=== PATIENT | female | born 1990 | race American Indian/Alaskan Native ===

== ENCOUNTER 2021-03-14 11:47 | Observation (INO) | payer OTHER ==
[2021-03-14] MEDS ORDERED: FAMOTIDINE 20 MG/2 ML INJ IV ONE (12:07)
[2021-03-14] MEDS ORDERED: MORPHINE 4 MG/1 ML INJ IV ONE (12:07)
[2021-03-14] MEDS ORDERED: ONDANSETRON 4 MG/2 ML INJ IV ONE ×2 (12:07→15:11)
[2021-03-14] MEDS ORDERED: ACETAMINOPHEN 500 MG TAB PO ONE (12:14)
--- NOTE | 2021-03-14 12:15 | Event Note ---
ED Screening Note Date of service: 03/14/21 Time: 12:12 ED Screening Note: Patient is a 30-year-old -German female with no past medical history presents to the ED with complaint of acute onset persistent right lower quadrant abdominal pain that radiates to the periumbilical area with intractable nausea and vomiting and diarrhea for the last 3 days, worse in the last 24 hours. Patient states that she has not been able to keep anything down including fluids and that diarrhea and vomiting have been persistent and constant. Patient states that no one else at home has had similar symptoms. Patient denies dizziness, syncope, chest pain, cough, sore throat, dysuria, urinary frequency and urgency, vaginal bleeding or vaginal discharge, hematuria, hematemesis or hematochezia. This initial assessment/diagnostic orders/clinical plan/treatment(s) is/are subject to change based on patients health status, clinical progression and re- assessment by fellow clinical providers in the ED. Further treatment and workup at subsequent clinical providers discretion. Patient/guardian urged not to elope from the ED as their condition may be serious if not clinically assessed and managed. Initial orders include: CBC, CMP, lipase, UA, hCG urine, CT abdomen pelvis with contrast, blood culture, lactic acid
[2021-03-14 12:39] LABS: Bacteria,Urine 4+ /HPF (Negative); Bilirubin,Urine NEG (Negative); Blood,Urine NEG (Negative); Color,Urine Yellow (Yellow); Mucus,Urine FEW /HPF; Protein,Urine <15 mg/dL mg/dL (Negative)
[2021-03-14 13:53] LABS: Mean Corpuscular HGB Conc 25 % (30-34); Red Blood Count 3.47 M/mm3 (3.65-5.03)
[2021-03-14 13:55] LABS: Hematocrit 17.6 % (30.3-42.9); Hemoglobin 4.5 gm/dl (10.1-14.3); Mean Corpuscular Volume 51 fl (79-97); Platelet Count 174 K/mm3 (140-440); Red Cell Distribution Width 24.6 % (13.2-15.2)
[2021-03-14 14:15] LABS: Albumin 3.8 g/dL (3.9-5); BUN/Creatinine Ratio 7; Blood Urea Nitrogen 6 mg/dL (7-17); Calcium 8.9 mg/dL (8.4-10.2); Hemolysis Index 0
[2021-03-14 14:19] LABS: Alanine Aminotransferase < 5 units/L (7-56)
[2021-03-14 14:27] LABS: Anisocytosis 2+; Total Cells Counted 100
[2021-03-14 14:28] LABS: Hypochromasia 3+; Platelet Estimate Consistent w Auto
[2021-03-14] MEDS ORDERED: SODIUM CHLORIDE 0.9% 500 ML 500 ML IV ONE ×3 (14:49→21:23)
[2021-03-14] MEDS ORDERED: SODIUM CHLORIDE 0.9% 1000 ML 1,000 ML IV ONE ×2 (14:49→17:01)
--- NOTE | 2021-03-14 14:49 | Emergency Department Report ---
ED Abdominal Pain HPI - General Chief Complaint: Abdominal Pain Stated Complaint: STOMACH PAIN Time Seen by Provider: 03/14/21 14:37 Source: patient Mode of arrival: Ambulatory Limitations: No Limitations - History of Present Illness Initial Comments: 30-year-old female, history of fibroids, anemia, presents to ED with complaint of abdominal pain x3 days. Patient states pain is located in the periumbilical and right lower quadrant area. She reports associated nausea, vomiting, diarrhea. She reports decreased appetite. She denies fever. She denies any hematuria, dysuria, urinary frequency, vaginal discharge. Patient states she is not currently on her menstrual period. Patient has a history of anemia due to heavy bleeding, states that she has had blood transfusions in the past. MD Complaint: abdominal pain -: days(s) (3) Location: periumbilical, RLQ Radiation: none Migration to: no migration Severity: moderate Quality: sharp Consistency: constant Improves With: eating Worsens With: nothing Associated Symptoms: nausea, vomiting, diarrhea. denies: fever, dysuria, hematuria - Related Data Home Medications Medication Instructions Recorded Confirmed Last Taken No Known Home Medications [No 03/14/21 03/14/21 Unknown Reported Home Medications] Allergies Allergy/AdvReac Type Severity Reaction Status Date / Time No Known Allergies Allergy Unverified 03/14/21 12:00 ED Review of Systems ROS: Stated complaint: STOMACH PAIN Other details as noted in HPI Comment: All other systems reviewed and negative Constitutional: other (Reports decreased appetite). denies: fever Gastrointestinal: abdominal pain, nausea, vomiting, diarrhea Genitourinary: denies: dysuria, frequency, hematuria, discharge Musculoskeletal: denies: back pain ED Past Medical Hx - Past Medical History Additional medical history: Anemia - Surgical History Additional Surgical History: C sect x1 - Social History Smoking Status: Current Every Day Smoker Substance Use Type: Alcohol - Medications Home Medications: Home Medications Medication Instructions Recorded Confirmed Last Taken Type No Known Home Medications [No 03/14/21 03/14/21 Unknown History Reported Home Medications] ED Physical Exam - General Limitations: No Limitations General appearance: alert, in no apparent distress - Head Head exam: Present: atraumatic, normocephalic - Eye Eye exam: Present: normal appearance, EOMI - ENT ENT exam: Present: mucous membranes moist - Neck Neck exam: Present: normal inspection - Respiratory Respiratory exam: Present: normal lung sounds bilaterally. Absent: respiratory distress - Cardiovascular Cardiovascular Exam: Present: normal rhythm, tachycardia - GI/Abdominal GI/Abdominal exam: Present: soft, tenderness (Right lower quadrant). Absent: distended - External exam: Present: normal external exam Speculum exam: Present: vaginal discharge. Absent: vaginal bleeding Bi-manual exam: Present: cervical motion tendernes, adnexal tenderness - Extremities Exam Extremities exam: Present: normal inspection - Neurological Exam Neurological exam: Present: alert, oriented X3 - Psychiatric Psychiatric exam: Present: normal affect, normal mood - Skin Skin exam: Present: warm, dry, intact, normal color ED Course Vital Signs 03/14/21 03/14/21 03/14/21 12:00 14:07 15:10 Temperature 100.2 F H Pulse Rate 108 H 94 H 92 H Respiratory 20 18 22 Rate Blood Pressure 119/57 Blood Pressure 90/54 106/62 [L] O2 Sat by Pulse 100 98 100 Oximetry 03/14/21 03/14/21 03/14/21 15:21 15:22 16:25 Temperature 101.0 F H Pulse Rate 96 H 95 H Respiratory 18 12 Rate Blood Pressure 91/64 Blood Pressure 92/60 [L] O2 Sat by Pulse 100 100 100 Oximetry 03/14/21 03/14/21 03/14/21 16:39 16:40 17:10 Temperature 99.7 F H 99.0 F Pulse Rate 68 98 H 98 H Respiratory 18 18 20 Rate Blood Pressure 97/70 94/70 Blood Pressure 112/59 [L] O2 Sat by Pulse 100 100 100 Oximetry 03/14/21 17:35 Temperature 99.2 F Pulse Rate 89 Respiratory 20 Rate Blood Pressure 124/60 Blood Pressure [L] O2 Sat by Pulse Oximetry - Reevaluation(s) Reevaluation #1: 03/14/21 16:39 Received call from radiologist stating patient appears to have a tubo-ovarian abscess. Will order ultrasound. - Consultations Consultation #1: 03/14/21 18:[address] Mauro, since ultrasound is taking a while to get patient's study done. He is aware of patient. Will await ultrasound results. Patient may possibly simply need cefoxitin, doxycycline, Flagyl if ultrasound truly shows TOA. 03/14/21 19:[address] Mauro again. Ultrasound confirms TOA. Would like to keep Flagyl, but instead of doxycycline and cefoxitin (which we do not carry), patient will get clindamycin and gentamicin. She will be admitted to Dr. Mauro. ED Medical Decision Making - Lab Data Result diagrams: 03/14/21 19:12 03/14/21 12:57 - Radiology Data Radiology results: report reviewed, image reviewed - Medical Decision Making 30-year-old female, history of anemia secondary to fibroids, presents to ED with 3-day history of right lower quadrant pain, fever, nausea and vomiting. Patient with fever over 101 and WBCs of 19. Lactic acid is normal. Hemoglobin resulted at 4.5. In the ED patient was given IV fluid bolus, pain medication, and transfused 1 unit of PRBCs. Ultrasound confirms a right-sided tubo-ovarian abscess. 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 Patient has already received Zosyn. She will in addition get Flagyl, clindamycin, and gentamicin. Repeat in one, resulted at 4.3 following 1 unit transfusion, so another unit has been ordered by me. Patient will be admitted to the mother-baby by Dr. Mauro. - Differential Diagnosis Appendicitis, TOA, kidney stone Critical Care Time: Yes Critical care time in (mins) excluding proc time.: 35 Critical care attestation.: If time is entered above; I have spent that time in minutes in the direct care of this critically ill patient, excluding procedure time. Critical Care Time: 35 min ED Disposition Clinical Impression: Right tubo-ovarian abscess, Anemia, Hypokalemia Disposition: -09 OP ADMIT IP TO THIS HOSP Is pt being admited?: Yes Condition: Stable Instructions: Abdominal Pain (ED) Referrals: PRIMARY CARE, [Primary Care Provider] - 3-5 Days Time of Disposition: 19:58
[2021-03-14] MEDS ORDERED: MORPHINE 2 MG/1 ML INJ IV ONE (15:11)
[2021-03-14] MEDS ORDERED: HYDROmorphone 1 MG/1 ML INJ IV ONE ×2 (15:48→20:50)
[2021-03-14] MEDS ORDERED: PIPERACIL/TAZOBACTA 4.5/NS 100 4.5 GM/100 ML VIAL IV ONE (16:41)
--- NOTE | 2021-03-14 16:48 | Cat Scan Report ---
CT ABDOMEN AND PELVIS WITH CONTRAST INDICATION / CLINICAL INFORMATION: RLQ abdominal pain. TECHNIQUE: Axial CT images were obtained through the abdomen and pelvis after IV contrast. All CT sc ans at this location are performed using CT dose reduction for ALARA by means of automated exposure c ontrol. COMPARISON: None available. FINDINGS: LOWER CHEST: No significant abnormality LIVER: Hepatomegaly, measuring 20.5 cm. No focal lesion. GALLBLADDER/BILIARY TREE: No significant abnormality PANCREAS: No significant abnormality SPLEEN: Splenomegaly, measuring 15.9 cm. No focal lesion. ADRENALS: No significant abnormality KIDNEYS / URETER: Ptotic appearing left kidney with nonobstructive left renal calculus. The kidneys e nhance symmetrically. Mild asymmetric prominence of the right ureter without abran hydronephrosis. No ureteral calculus. URINARY BLADDER: Bladder is partially decompressed, though grossly unremarkable. REPRODUCTIVE ORGANS: There is inflammation centered in the right adnexa with tubular fluid density st ructures, which may reflect hydrosalpinx. Multiloculated peripherally enhancing collection in the pel vis measures up to 10.6 x 9.7 cm transaxially (series 2 image 145). STOMACH / SMALL BOWEL: Nondilated fluid-filled small bowel, likely reactive. No evidence of obstructi on. COLON: Reactive thickening of the sigmoid colon adjacent to the above-described collection. Colon is otherwise unremarkable. Normal appendix is seen. LYMPH NODES: No significant adenopathy. VASCULATURE: No significant abnormality. OTHER: No free air, free fluid, or focal fluid collection is identified. SKELETAL SYSTEM: No acute osseous findings. IMPRESSION: 1. Inflammatory changes centered in the pelvis/right adnexa with 10 cm multiloculated rim-enhancing collection, suspicious for abscess, and right hydrosalpinx. 2. Reactive enterocolitis of the sigmoid and distal small bowel. 3. Other chronic and incidental findings as above. Findings were discussed with Dr. Judd by phone on 03/14/2021 at 3:43 PM. Signer Name: Espinoza Wheatley MD Signed: 03/14/2021 4:44 PM Workstation Name: [id number]
[2021-03-14] MEDS ORDERED: fentaNYL 100 MCG/2 ML INJ IV ONE (17:00)
[2021-03-14] MEDS ORDERED: metroNIDAZOLE 500 MG TAB PO ONE (19:41)
[2021-03-14] MEDS ORDERED: DOXYCYCLINE 100 MG CAP PO ONE (19:41)
[2021-03-14 19:46] LABS: Hematocrit 16.3 % (30.3-42.9); Hemoglobin 4.3 gm/dl (10.1-14.3)
--- NOTE | 2021-03-14 19:49 | Ultrasound Report ---
ULTRASOUND PELVIS INDICATION / CLINICAL INFORMATION: RLQ pain. TECHNIQUE: Transabdominal and Transvaginal. Duplex Color Doppler used: Yes. COMPARISON: CT abdomen pelvis 03/14/2021 FINDINGS: UTERUS: Moderately enlarged uterus measuring 13.4 x 5.0 x 7.8 cm. 4.6 cm heterogeneous focus at the l ateral aspect of the uterus likely represents a fibroid. Endometrial thickness is 11 mm in this preme nopausal patient. RIGHT ADNEXA: Complex right adnexal focus with cystic and reticular low level echogenicity. This uziel ures 13.3 x 6.8 x 7.8 cm altogether. When compared to the recent CT examination there is considerable dilatation of the fallopian tube which is difficult to fully quantify on this examination. Mildly in creased vascularity in this region. The right ovary itself is not well delineated. LEFT ADNEXA: No significant ovarian cyst or mass. Normal color Doppler blood flow. URINARY BLADDER: Scant internal debris in the bladder. FREE FLUID: Small amount. ADDITIONAL FINDINGS: None. IMPRESSION: 1. Complex fluid collection in the right adnexa measuring up to 13.3 cm with considerable dilatation of the right fallopian tube. Findings are concerning for tubo-ovarian abscess with possible pyosalpin x. 2. 4.6 cm heterogeneous uterine focus likely representing a fibroid. 3. Small amount of pelvic free fluid. 4. Scant internal debris in the bladder which can be seen in setting of cystitis. Signer Name: Tejinder Ames MD Signed: 03/14/2021 7:45 PM Workstation Name: [id number]
[2021-03-14] MEDS ORDERED: GENTAMICIN 120 MG in SODIUM CHLORIDE 0.9% 100 ML IV ONE (19:54)
[2021-03-14] MEDS ORDERED: POTASSIUM CHLORIDE ER 20 MEQ TAB PO ONE (19:58)
[2021-03-14] MEDS ORDERED: GENTAMICIN/NS 120MG/100ML 120 MG/100 ML BAG IV ONE (20:00)
[2021-03-14] MEDS ORDERED: LACTATED RINGERS 1,000 ML IV SCH ×2 (21:45→22:00)
[2021-03-14] MEDS: oxyCODONE /ACETAMINOPHEN 5-325MG TAB PO PRN (22:02)
--- NOTE | 2021-03-14 22:02 | History and Physical Report ---
History of Present Illness Date of examination: 03/14/21 Date of admission: 03/14/21 19:57 Chief complaint: RLQ pain History of present illness: 30 yo G1 c/b hx anemia (hx multiple transfusions), CHTN (no meds) presenting with 3 days of constant severe RLQ pain with N/V, found to have concern for right sided TOA by US and CT with 10 cm R adnexal mass. + diarrhea. Decreased po intake. See noone for [employer] care. Hx cyclic menorrhagia with hx multiple transfusions Hx Gonorrhea 1.5 years ago. Denies hx of abnormal vaginal discharge. Past History Past Medical History: hypertension, other (anemia) Past Surgical History: section (x1) [employer] History: gonorrhea Family/Genetic History: none Social history: smoking, alcohol abuse - Obstetrical History : 1 Para: 1 Medications and Allergies Allergies Allergy/AdvReac Type Severity Reaction Status Date / Time No Known Allergies Allergy Unverified 03/14/21 12:00 Home Medications Medication Instructions Recorded Confirmed Last Taken Type No Known Home Medications [No 03/14/21 03/14/21 Unknown History Reported Home Medications] Active Meds: Active Medications Hydromorphone HCl (Hydromorphone 1 Mg/1 Ml Inj) 1 mg IV Q2H PRN PRN Reason: Pain , Severe (7-10) Clindamycin HCl (Cleocin 900 Mg/50 Ml) 900 mg in 50 mls @ 100 mls/hr IV Q8H [facility]; Protocol Gentamicin Sulfate/Sodium Chloride (Gentamicin/Ns 80 Mg/100 Ml) 100 mls @ 200 mls/hr IV Q8H [facility]; Protocol Lactated Ringer's (Lactated Ringers) 1,000 mls @ 125 mls/hr IV DIRECT [facility] Oxycodone/Acetaminophen (Oxycodone /Acetaminophen 5-325mg Tab) 1 tab PO Q4H PRN PRN Reason: Pain, Moderate (4-6) Review of Systems All systems: negative (expect HPI) - Vital Signs Vital signs: Vital Signs Temp Pulse Resp BP Pulse Ox 100.2 F H 108 H 20 119/57 100 03/14/21 12:00 03/14/21 12:00 03/14/21 12:00 03/14/21 12:00 03/14/21 12:00 Temp Pulse Resp BP Pulse Ox 98.1 F 83 22 122/59 100 03/14/21 21:43 03/14/21 21:43 03/14/21 21:43 03/14/21 21:43 03/14/21 21:43 - Physical Exam Cardiovascular: Regular rate Lungs: Positive: Clear to auscultation, Normal air movement Abdomen: Positive: normal appearance, tenderness (generalized, R>L), normal bowel sounds Genitourinary (Female): Positive: normal external genitalia Cervix: Positive: other (+CMT by ED) Adnexa: right: mass, tenderness Results Result Diagrams: 03/14/21 19:12 03/14/21 12:57 Abnormal lab results 03/14/21 03/14/21 03/14/21 Range/Units 12:26 12:57 12:57 WBC 19.9 H (4.5-11.0) K/mm3 RBC 3.47 L (3.65-5.03) M/mm3 Hgb 4.5 L* (10.1-14.3) gm/dl Hct 17.6 L* (30.3-42.9) % MCV 51 L (79-97) fl MCH 13 L (28-32) pg MCHC 25 L (30-34) % RDW 24.6 H (13.2-15.2) % Seg Neuts % (Manual) 81.0 H (40.0-70.0) % Lymphocytes % (Manual) 10.0 L (13.4-35.0) % Monocytes % (Manual) 8.0 H (0.0-7.3) % Seg Neutrophils # Man 16.1 H (1.8-7.7) K/mm3 Monocytes # (Manual) 1.6 H (0.0-0.8) K/mm3 Basophils # (Manual) 0.2 H (0.0-0.1) K/mm3 Sodium 133 L (137-145) mmol/L Potassium 3.2 L (3.6-5.0) mmol/L Chloride 96.8 L (98-107) mmol/L BUN 6 L (7-17) mg/dL ALT < 5 L (7-56) units/L Total Protein 8.3 H (6.3-8.2) g/dL Albumin 3.8 L (3.9-5) g/dL Urine WBC (Auto) 17.0 H (0.0-6.0) /HPF U Epithel Cells (Auto) 18.0 H (0-13.0) /HPF Crossmatch 03/14/21 03/14/21 Range/Units 14:55 19:12 WBC (4.5-11.0) K/mm3 RBC (3.65-5.03) M/mm3 Hgb 4.3 L* (10.1-14.3) gm/dl Hct 16.3 L* (30.3-42.9) % MCV (79-97) fl MCH (28-32) pg MCHC (30-34) % RDW (13.2-15.2) % Seg Neuts % (Manual) (40.0-70.0) % Lymphocytes % (Manual) (13.4-35.0) % Monocytes % (Manual) (0.0-7.3) % Seg Neutrophils # Man (1.8-7.7) K/mm3 Monocytes # (Manual) (0.0-0.8) K/mm3 Basophils # (Manual) (0.0-0.1) K/mm3 Sodium (137-145) mmol/L Potassium (3.6-5.0) mmol/L Chloride (98-107) mmol/L BUN (7-17) mg/dL ALT (7-56) units/L Total Protein (6.3-8.2) g/dL Albumin (3.9-5) g/dL Urine WBC (Auto) (0.0-6.0) /HPF U Epithel Cells (Auto) (0-13.0) /HPF Crossmatch See Detail All other labs normal. Assessment and Plan - Patient Problems (1) Anemia Current Visit: Yes Status: Chronic Qualifiers: Anemia type: iron deficiency Iron deficiency anemia type: chronic blood loss Qualified Code(s): D50.0 - Iron deficiency anemia secondary to blood loss (chronic) Plan to address problem: Favor symptomatic acute on chronic anemia. Hgb 4.3. Patient reports long hx multiple transfusion. Patient reports she is near her baseline. 1 unit pRBCs in the ED. --Transfuse at least 2 more units pRBCs. --Repeat CBC in AM. (2) Hypokalemia Current Visit: Yes Status: Acute Plan to address problem: replete PRN (3) Right tubo-ovarian abscess Current Visit: Yes Status: Acute Plan to address problem: --US and CT imaging concerning for R tuboovarian abscess. s/p Zosyn and Gentamin 120mg IV x 1 --Continue Gentamicin 80mg IV q8hr and Clindamycin 900mg IV q8hr for 24-48H, then plan for doxycycline for outpatient management --Pain control --regular diet --dispo pending improvement of symptoms
[2021-03-14] MEDS ORDERED: ACETAMINOPHEN 325 MG TAB PO ONE (23:52)
[2021-03-14] MEDS ORDERED: diphenhydrAMINE 25 MG CAP PO ONE (23:55)
[2021-03-15] MEDS: oxyCODONE /ACETAMINOPHEN 5-325MG TAB PO PRN ×4 (04:41→20:40)
[2021-03-15] MEDS: GENTAMICIN/NS 80 MG/100 ML 100 ML IV SCH ×3 (07:26→15:04)
--- NOTE | 2021-03-15 09:30 | Progress Note ---
Assessment and Plan - Patient Problems (1) Anemia Current Visit: Yes Status: Chronic Qualifiers: Anemia type: iron deficiency Iron deficiency anemia type: chronic blood loss Qualified Code(s): D50.0 - Iron deficiency anemia secondary to blood loss (chronic) Plan to address problem: Favor symptomatic acute on chronic anemia. Hgb 4.3. Patient reports long hx multiple transfusion. Patient reports she is near her baseline. s/p 3 units pRBCS. --Repeat CBC pending (2) Hypokalemia Current Visit: Yes Status: Acute Plan to address problem: replete PRN (3) Right tubo-ovarian abscess Current Visit: Yes Status: Acute Plan to address problem: --US and CT imaging concerning for R tuboovarian abscess. s/p Zosyn and Gentamin 120mg IV x 1 --Continue Gentamicin 80mg IV q8hr and Clindamycin 900mg IV q8hr for 24-48H, then plan for doxycycline for outpatient management --Pain control --regular diet --dispo pending improvement of symptoms Subjective - Subjective Date of service: 03/15/21 Principal diagnosis: T TOA Interval history: Patient feels better s/p 3 units pRBCs, but has persistent abdominal pain. Unchanged from previous. Denies N/V. Reports that she is hungry. Patient reports: appetite normal, pain poorly controlled Objective - Vital Signs Latest vital signs: Vital Signs Temp Pulse Resp BP BP Pulse Ox 03/15/21 08:39 98.6 F 81 20 139/68 100 03/15/21 05:55 99.5 F 82 20 122/65 100 03/15/21 05:25 100.0 F H 81 20 144/72 100 03/15/21 04:55 97.9 F 75 18 128/72 100 03/15/21 04:25 99.0 F 83 20 143/84 100 03/15/21 03:55 98.9 F 76 18 125/69 99 03/15/21 03:40 99.0 F 79 18 114/61 99 03/15/21 02:30 98.3 F 79 18 112/60 100 03/15/21 02:00 98.8 F 78 18 100/45 100 03/15/21 01:30 97.6 F 80 18 102/50 100 03/15/21 01:00 98.5 F 80 20 107/48 99 03/15/21 00:45 98.4 F 80 20 105/53 100 03/14/21 21:43 98.1 F 83 22 122/59 100 03/14/21 20:32 81 20 115/72 100 03/14/21 17:35 99.2 F 89 20 124/60 03/14/21 17:10 99.0 F 98 H 20 94/70 100 03/14/21 16:40 99.7 F H 98 H 18 97/70 100 03/14/21 16:39 68 18 112/59 100 03/14/21 16:25 101.0 F H 95 H 12 91/64 100 03/14/21 15:22 96 H 18 92/60 100 03/14/21 15:21 100 03/14/21 15:10 92 H 22 106/62 100 03/14/21 14:07 94 H 18 90/54 98 03/14/21 12:00 100.2 F H 108 H 20 119/57 100 Intake and Output 03/14/21 03/15/21 03/15/21 23:59 07:59 15:59 Intake Total 250 50 Output Total 200 300 250 Balance 50 -250 -250 Intake: IV 50 CLEOCIN 900 MG/50 mL 900 50 mg In 50 ml @ 100 mls/hr IV Q8H [facility] Rx#:[id number] Blood Product 250 0 Leukoreduced Rbc Part 2 0 Unit [id number] Leukoreduced Red Blood 250 Cells Unit [id number] Leukoreduced Red Blood 0 Cells Unit [id number] Output: Urine 200 300 250 Void 200 300 250 Other: Total, Output Amount 200 300 250 Voiding Method Toilet # Voids Void 1 1 Weight 88.904 kg - Exam Abdomen: Present: normal appearance, tenderness (R>L), normal bowel sounds - Labs Labs: Abnormal lab results 03/14/21 03/14/21 03/14/21 Range/Units 12:26 12:57 12:57 WBC 19.9 H (4.5-11.0) K/mm3 RBC 3.47 L (3.65-5.03) M/mm3 Hgb 4.5 L* (10.1-14.3) gm/dl Hct 17.6 L* (30.3-42.9) % MCV 51 L (79-97) fl MCH 13 L (28-32) pg MCHC 25 L (30-34) % RDW 24.6 H (13.2-15.2) % Seg Neuts % (Manual) 81.0 H (40.0-70.0) % Lymphocytes % (Manual) 10.0 L (13.4-35.0) % Monocytes % (Manual) 8.0 H (0.0-7.3) % Seg Neutrophils # Man 16.1 H (1.8-7.7) K/mm3 Monocytes # (Manual) 1.6 H (0.0-0.8) K/mm3 Basophils # (Manual) 0.2 H (0.0-0.1) K/mm3 Sodium 133 L (137-145) mmol/L Potassium 3.2 L (3.6-5.0) mmol/L Chloride 96.8 L (98-107) mmol/L BUN 6 L (7-17) mg/dL ALT < 5 L (7-56) units/L Total Protein 8.3 H (6.3-8.2) g/dL Albumin 3.8 L (3.9-5) g/dL Urine WBC (Auto) 17.0 H (0.0-6.0) /HPF U Epithel Cells (Auto) 18.0 H (0-13.0) /HPF Crossmatch 03/14/21 03/14/21 Range/Units 14:55 19:12 WBC (4.5-11.0) K/mm3 RBC (3.65-5.03) M/mm3 Hgb 4.3 L* (10.1-14.3) gm/dl Hct 16.3 L* (30.3-42.9) % MCV (79-97) fl MCH (28-32) pg MCHC (30-34) % RDW (13.2-15.2) % Seg Neuts % (Manual) (40.0-70.0) % Lymphocytes % (Manual) (13.4-35.0) % Monocytes % (Manual) (0.0-7.3) % Seg Neutrophils # Man (1.8-7.7) K/mm3 Monocytes # (Manual) (0.0-0.8) K/mm3 Basophils # (Manual) (0.0-0.1) K/mm3 Sodium (137-145) mmol/L Potassium (3.6-5.0) mmol/L Chloride (98-107) mmol/L BUN (7-17) mg/dL ALT (7-56) units/L Total Protein (6.3-8.2) g/dL Albumin (3.9-5) g/dL Urine WBC (Auto) (0.0-6.0) /HPF U Epithel Cells (Auto) (0-13.0) /HPF Crossmatch See Detail
[2021-03-15] MEDS: POTASSIUM CHLORIDE ER 20 MEQ TAB PO SCH (10:58)
[2021-03-15] MEDS ORDERED: PNEUMOCOCCAL 23 Valent 0.5 ML VIAL IM ONE (12:00)
[2021-03-15] MEDS ORDERED: FLU VACC QUAD 2020-2021 (6 months +)/PF 60 0.5 ML SYRINGE IM ONE (12:00)
[2021-03-15] MEDS: HYDROmorphone 1 MG/1 ML INJ IV PRN ×2 (13:14→18:12)
[2021-03-15 15:11] LABS: Hematocrit 20.6 % (30.3-42.9); Mean Corpuscular HGB Conc 29 % (30-34); Red Blood Count 3.37 M/mm3 (3.65-5.03)
[2021-03-15 15:23] LABS: Mean Corpuscular Volume 61 fl (79-97)
[2021-03-15 15:33] LABS: Albumin 2.9 g/dL (3.9-5); Blood Urea Nitrogen 5 mg/dL (7-17); Calcium 8.5 mg/dL (8.4-10.2); Hemolysis Index 0
[2021-03-15 15:34] LABS: Alanine Aminotransferase < 5 units/L (7-56); BUN/Creatinine Ratio 8
--- NOTE | 2021-03-15 17:08 | Event Note ---
Date: 03/15/21 Called for inappropriate rise of Hgb from 4->6 after 3 units pRBCs. Patient however reports that this is her baseline and she feels better from an anemia standpoint. VSS. WBC improving. Continue current management and repeat CBC and CMP tomorrow prior to considering more blood products.
[2021-03-15] MEDS ORDERED: diphenhydrAMINE 25 MG CAP PO ONE (17:37)
[2021-03-15] MEDS ORDERED: diphenhydrAMINE 25 MG CAP PO PRN (17:38)
[2021-03-15 17:49] LABS: Anisocytosis 1+; Total Cells Counted 100
[2021-03-15 17:50] LABS: Hypochromasia 1+; Platelet Estimate Consistent w Auto
[2021-03-15 17:52] LABS: Platelet Count 126 K/mm3 (140-440)
[2021-03-16] MEDS: GENTAMICIN/NS 80 MG/100 ML 100 ML IV SCH ×3 (01:00→15:52)
[2021-03-16] MEDS: HYDROmorphone 1 MG/1 ML INJ IV PRN ×4 (01:43→22:35)
[2021-03-16] MEDS: oxyCODONE /ACETAMINOPHEN 5-325MG TAB PO PRN ×3 (02:22→13:46)
--- NOTE | 2021-03-16 08:35 | Progress Note ---
Assessment and Plan - Patient Problems (1) Anemia Current Visit: Yes Status: Chronic Qualifiers: Anemia type: iron deficiency Iron deficiency anemia type: chronic blood loss Qualified Code(s): D50.0 - Iron deficiency anemia secondary to blood loss (chronic) Plan to address problem: Favor symptomatic acute on chronic anemia. Hgb 4.3. Patient reports long hx multiple transfusion. Patient reports she is near her baseline. s/p 3 units pRBCS. --Repeat CBC pending. Attempt to get Hgb >6. May require additional units. Patient expressed understanding. (2) Hypokalemia Current Visit: Yes Status: Acute Plan to address problem: replete PRN (3) Right tubo-ovarian abscess Current Visit: Yes Status: Acute Plan to address problem: --US and CT imaging concerning for R tuboovarian abscess. s/p Zosyn and Gentamin 120mg IV x 1 --Continue Gentamicin 80mg IV q8hr and Clindamycin 900mg IV q8hr for 24-48H, then plan for doxycycline for outpatient management --Pain control --regular diet --dispo pending improvement of symptoms Subjective - Subjective Date of service: 03/16/21 Principal diagnosis: T TOA Interval history: Patient feels better s/p 3 units pRBCs, but has persistent abdominal pain, however slightly improved from previous days. Denies N/V. Tolerating po. Reports baseline Hgb ~6. Patient reports: appetite normal, voiding normally [place]: doing well Objective - Vital Signs Latest vital signs: Vital Signs Temp Pulse Resp BP Pulse Ox 03/16/21 04:48 98.9 F 76 20 115/63 98 03/15/21 23:43 99.7 F H 76 20 128/73 99 03/15/21 20:08 99.8 F H 77 20 130/71 100 03/15/21 16:42 98.8 F 76 20 116/68 98 03/15/21 12:07 98.8 F 83 24 134/70 97 03/15/21 08:39 98.6 F 81 20 139/68 100 Intake and Output 03/15/21 03/16/21 03/16/21 23:59 07:59 15:59 Intake Total 530 Output Total 100 Balance 430 Intake: IV 50 CLEOCIN 900 MG/50 mL 900 50 mg In 50 ml @ 100 mls/hr IV Q8H [facility] Rx#:[id number] Oral 480 Output: Urine 100 Void 100 Other: Total, Intake Amount 240 Total, Output Amount 100 # Voids Void 1 - Exam Abdomen: Present: normal appearance, tenderness (R>L, mildly improved from previous), normal bowel sounds - Labs Labs: Abnormal lab results 03/15/21 03/15/21 Range/Units 14:54 14:54 WBC 13.7 H (4.5-11.0) K/mm3 RBC 3.37 L (3.65-5.03) M/mm3 Hgb 6.0 L (10.1-14.3) gm/dl Hct 20.6 L (30.3-42.9) % MCV 61 L (79-97) fl MCH 18 L (28-32) pg MCHC 29 L (30-34) % RDW 39.0 H (13.2-15.2) % Plt Count 126 L (140-440) K/mm3 Seg Neuts % (Manual) 94.0 H (40.0-70.0) % Lymphocytes % (Manual) 2.0 L (13.4-35.0) % Seg Neutrophils # Man 12.9 H (1.8-7.7) K/mm3 Lymphocytes # (Manual) 0.3 L (1.2-5.4) K/mm3 Sodium 131 L (137-145) mmol/L Potassium 3.5 L (3.6-5.0) mmol/L Carbon Dioxide 21 L (22-30) mmol/L BUN 5 L (7-17) mg/dL ALT < 5 L (7-56) units/L Albumin 2.9 L (3.9-5) g/dL
[2021-03-16] MEDS: POTASSIUM CHLORIDE ER 20 MEQ TAB PO SCH (10:19)
[2021-03-16 11:15] LABS: Blood Urea Nitrogen 3 mg/dL (7-17); Calcium 8.2 mg/dL (8.4-10.2); Hemolysis Index 0
[2021-03-16 11:16] LABS: Alanine Aminotransferase < 5 units/L (7-56); BUN/Creatinine Ratio 4
[2021-03-16 11:27] LABS: Hematocrit 21.2 % (30.3-42.9); Hemoglobin 6.2 gm/dl (10.1-14.3); Mean Corpuscular HGB Conc 29 % (30-34)
[2021-03-16 11:53] LABS: Mean Corpuscular Volume 61 fl (79-97); Platelet Count 121 K/mm3 (140-440); Red Cell Distribution Width 39.4 % (13.2-15.2)
[2021-03-16 12:19] LABS: Total Cells Counted 100
[2021-03-16 12:20] LABS: Giant Platelets Few; Hypochromasia 2+; Platelet Estimate Consistent w Auto; Tear Drop Cells Few
[2021-03-17] MEDS: GENTAMICIN/NS 80 MG/100 ML 100 ML IV SCH (01:00)
[2021-03-17] MEDS: oxyCODONE /ACETAMINOPHEN 5-325MG TAB PO PRN ×3 (01:29→10:06)
--- NOTE | 2021-03-17 08:24 | Progress Note ---
Assessment and Plan CONTINUE IV ANTIBIOTICS AND BED REST. - Patient Problems (1) Hypokalemia Current Visit: No Status: Acute (2) Right tubo-ovarian abscess Current Visit: Yes Status: Acute (3) Anemia Current Visit: Yes Status: Chronic Qualifiers: Anemia type: iron deficiency Iron deficiency anemia type: chronic blood loss Qualified Code(s): D50.0 - Iron deficiency anemia secondary to blood loss (chronic) Subjective - Subjective Date of service: 03/17/21 Principal diagnosis: T TOA Interval history: SEE H&p. Patient reports: appetite normal Objective - Vital Signs Latest vital signs: Vital Signs Temp Pulse Resp BP Pulse Ox 03/17/21 05:41 98.3 F 74 18 125/73 100 03/17/21 01:26 98.7 F 76 18 138/79 100 03/16/21 21:42 98.7 F 78 18 139/76 100 03/16/21 16:33 98.3 F 77 18 129/76 99 03/16/21 15:43 16 03/16/21 13:46 16 03/16/21 12:44 98.5 F 76 18 128/66 99 03/16/21 10:30 16 03/16/21 08:41 16 Intake and Output 03/16/21 03/17/21 03/17/21 23:59 07:59 15:59 Intake Total 630 510 Balance 630 510 Intake: IV 150 150 CLEOCIN 900 MG/50 mL 900 50 50 mg In 50 ml @ 100 mls/hr IV Q8H [facility] Rx#:[id number] Gentamicin/Ns 80 mg/100 100 100 ml 100 ml @ 200 mls/hr IV Q8H [facility] Rx#:[id number] Oral 240 Intake, Free Water 240 360 Other: Total, Intake Amount 240 Voiding Method Toilet # Voids Void 1 1 - Exam Abdomen: Present: normal appearance, soft, tenderness (RLQ. ) - Labs Labs: Abnormal lab results 03/16/21 03/16/21 Range/Units 09:58 09:58 WBC 13.1 H (4.5-11.0) K/mm3 RBC 3.50 L (3.65-5.03) M/mm3 Hgb 6.2 L (10.1-14.3) gm/dl Hct 21.2 L (30.3-42.9) % MCV 61 L (79-97) fl MCH 18 L (28-32) pg MCHC 29 L (30-34) % RDW 39.4 H (13.2-15.2) % Plt Count 121 L (140-440) K/mm3 Seg Neuts % (Manual) 85.0 H (40.0-70.0) % Lymphocytes % (Manual) 8.0 L (13.4-35.0) % Seg Neutrophils # Man 11.1 H (1.8-7.7) K/mm3 Lymphocytes # (Manual) 1.0 L (1.2-5.4) K/mm3 Sodium 133 L (137-145) mmol/L Carbon Dioxide 21 L (22-30) mmol/L BUN 3 L (7-17) mg/dL Calcium 8.2 L (8.4-10.2) mg/dL ALT < 5 L (7-56) units/L Albumin 3.0 L (3.9-5) g/dL
[2021-03-17 09:27] LABS: Hematocrit 20.3 % (30.3-42.9); Mean Corpuscular HGB Conc 29 % (30-34); Red Blood Count 3.31 M/mm3 (3.65-5.03)
[2021-03-17 09:28] LABS: Hemoglobin 5.9 gm/dl (10.1-14.3)
[2021-03-17 09:29] LABS: Mean Corpuscular Volume 62 fl (79-97); Platelet Count 142 K/mm3 (140-440); Red Cell Distribution Width 39.4 % (13.2-15.2)
[2021-03-17] MEDS ORDERED: SODIUM CHLORIDE 0.9% 500 ML 500 ML IV NR (09:36)
[2021-03-17] MEDS ORDERED: DOXYCYCLINE 100 MG CAP PO SCH (10:00)
[2021-03-17 11:22] LABS: Total Cells Counted 100
[2021-03-17 11:23] LABS: Anisocytosis 3+; Band Neutrophils # (Manual) 0.6 K/mm3
[2021-03-17 11:24] LABS: Giant Platelets Rare; Hypochromasia 3+; Platelet Estimate Consistent w Auto
[2021-03-17] MEDS: HYDROmorphone 1 MG/1 ML INJ IV PRN (14:31)
[2021-03-17 16:55] VITALS: BP 129/77
--- NOTE | 2021-03-20 12:40 | Electrocardiograph Report ---
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
== END 2021-03-17 17:47 | disposition left against medical advice (07) ==
LOC: ED 11:47 → OB 19:57
PROVIDERS: ADMIT Obstetrics & Gynecology; ATTEND Obstetrics & Gynecology
DX: N70.93 Salpingitis and oophoritis, unspecified (principal); Z20.822 Contact with and (suspected) exposure to COVID-19; D64.9 Anemia, unspecified; E87.6 Hypokalemia; N70.92 Oophoritis, unspecified; I10 Essential (primary) hypertension; F17.210 Nicotine dependence, cigarettes, uncomplicated; Z98.891 History of uterine scar from previous surgery
CPT/HCPCS: 36415; 36430; 74177; 76830; 80053; 81001; 82140; 83690; 84703; 85007; 85014; 85018; 85025; 86850; 86900; 86901; 86920; 87040; 87086; 87210; 87591; 93005; 93975; 96361; 96365; 96366; 96367; 96375; 96376; 99291; G0378; J1170; J1580; J2270; J2405; J2543; J3010; J7030; J7040; P9016; Q9967; U0003

== ENCOUNTER 2021-10-08 08:39 | Emergency (ER) | payer SELFPAY ==
--- NOTE | 2021-10-08 12:04 | Emergency Department Report ---
HPI - General Chief Complaint: Abdominal Pain Time Seen by Provider: 10/08/21 11:45 - HPI HPI: MSE 1 The patient is a 31-year-old female present with a chief complaint of headache and dizziness. Patient states for the past 2 to 3 days she has had intermittent dizziness in the right frontal and right occipital headache which she attributes to her blood pressure being elevated. Patient states she carries a diagnosis of hypertension but is not taking any medication. The patient mention abdominal pain in triage but when she was questions about this she denies abdominal pain and just states she is felt constipated lately. Patient came to the ED by EMS she gives her headache a score of 7/10. Patient denies any recent trauma. ED Past Medical Hx - Past Medical History Hx Hypertension: Yes Additional medical history: Anemia - Surgical History Additional Surgical History: C sect x1 - Family History Family history: no significant - Social History Smoking Status: Current Every Day Smoker (1/2 pack/day) Substance Use Type: Alcohol - Medications Home Medications: Home Medications Medication Instructions Recorded Confirmed Last Taken Type DOXYCYCLINE Hyclate [Vibramycin 100 mg PO BID 10 Days #20 tab 03/17/21 Unknown Rx CAP] HYDROcodone/APAP 10-325 [[place] 1 each PO Q6HR PRN #25 tablet 03/17/21 Unknown Rx 10/325] Butalb/Acetamin/Caff 50-325-40 2 tab PO Q8HR PRN #10 tablet 10/08/21 Unknown Rx [Fioricet 50-325-40] amLODIPine 5 mg PO DAILY #60 tab 10/08/21 Unknown Rx ED Review of Systems ROS: Stated complaint: WEAKNESS/ABD PAIN Other details as noted in HPI Constitutional: fever (?) Eyes: denies: eye pain ENT: denies: throat pain Respiratory: no symptoms reported Cardiovascular: denies: chest pain Endocrine: no symptoms reported Gastrointestinal: nausea, vomiting, constipation. denies: abdominal pain Genitourinary: denies: dysuria Musculoskeletal: denies: back pain Neurological: headache Physical Exam - Physical Exam Vital Signs: Vital Signs 10/08/21 08:43 Temperature 98 F Pulse Rate 85 Respiratory 16 Rate Blood Pressure 158/100 [Right] O2 Sat by Pulse 98 Oximetry Physical Exam: GENERAL: The patient is well-developed well-nourished female sitting in chair not appearing to be in acute distress. [] HEENT: Normocephalic. Atraumatic. Extraocular motions are intact. Patient has moist mucous membranes. NECK: Supple. Trachea midline CHEST/LUNGS: Clear to auscultation. There is no respiratory distress noted. HEART/CARDIOVASCULAR: Regular. There is no tachycardia. There is no gallop rub or murmur. ABDOMEN: Abdomen is soft, nontender. Patient has normal bowel sounds. There is no abdominal distention. SKIN: There is no rash. There is no edema. There is no diaphoresis. NEURO: The patient is awake, alert, and oriented. The patient is cooperative. The patient has no focal neurologic deficits. The patient has normal speech and gait. MUSCULOSKELETAL: There is no tenderness or deformity. There is no limitation range of motion. There is no evidence of acute injury. ED Course Vital Signs 10/08/21 08:43 Temperature 98 F Pulse Rate 85 Respiratory 16 Rate Blood Pressure 158/100 [Right] O2 Sat by Pulse 98 Oximetry ED Medical Decision Making - Lab Data Result diagrams: 10/08/21 12:25 10/08/21 12:25 Laboratory Tests 10/08/21 10/08/21 10/08/21 12:25 12:25 12:25 WBC 7.5 RBC 4.91 Hgb 7.0 L Hct 26.1 L MCV 53 L MCH 14 L MCHC 27 L RDW 25.0 H Plt Count 199 Sodium 141 Potassium 3.8 Chloride 106.7 Carbon Dioxide 22 Anion Gap 16 BUN 7 Creatinine 0.4 L Estimated GFR > 60 BUN/Creatinine Ratio 18 Glucose 87 Calcium 9.5 HCG, Qual Negative - Radiology Data Radiology results: report reviewed (CT head), image reviewed (CT head) [facility] [address] [place] [address] Cat Scan Report Signed Patient: MARY CHANEL MR#: [id number] : 1990 Acct:[id number] Age/Sex: 31 / F ADM Date: 10/08/21 Loc: ED Attending Dr: Ordering Physician: SALINA CANCHOLA MD Date of Service: 10/08/21 Procedure(s): CT head/brain wo con Accession Number(s): [id number] cc: SALINA CANCHOLA MD CT head/brain wo con INDICATION / CLINICAL INFORMATION: 31 years Female; Hypertension, headache dizziness. TECHNIQUE: Routine CT head without contrast. All CT scans at this location are performed using CT dose reduction for ALARA by means of automated exposure control. COMPARISON: None. FINDINGS: BRAIN / INTRACRANIAL CONTENTS: The brain parenchyma appears to demonstrate appropriate attenuation. The ventricular system is within normal limits in size and configuration. There is no clear CT evidence of acute intracranial hemorrhage or significant mass effect. ORBITS: No significant abnormality of visualized orbits. SINUSES / MASTOIDS: No significant abnormality in the visualized paranasal sinuses or mastoid air cells. CRANIOCERVICAL JUNCTION: No significant abnormality. ADDITIONAL FINDINGS: None. IMPRESSION: 1. There is no CT evidence of acute intracranial process. Signer Name: Gustabo Sims MD Signed: 10/08/2021 12:46 PM Workstation Name: [id number] Transcribed By: MR Dictated By: Gustabo Sims MD Electronically Authenticated By: Gustabo Sims MD Signed Date/Time: 10/08/21 124 DD/ 41 TD/TT: Print Cancel - Differential Diagnosis Hypertensive urgency, ICH, Critical care attestation.: If time is entered above; I have spent that time in minutes in the direct care of this critically ill patient, excluding procedure time. ED Disposition Clinical Impression: Headache, Hypertension Disposition: HOME / SELF CARE / HOMELESS Is pt being admited?: No Does the pt Need Aspirin: No Condition: Stable Instructions: Abdominal Pain (ED), Hypertension (ED) Additional Instructions: Return to the emergency department should you develop worsening symptoms, inability to tolerate food or liquids, high fever or any other concerns Prescriptions: amLODIPine 5 mg PO DAILY #60 tab Butalb/Acetamin/Caff 50-325-40 [Fioricet 50-325-40] 2 tab PO Q8HR PRN #10 tablet PRN Reason: Headache Referrals: [facility] [Primary Care Provider] - 3-5 Days [facility] [Provider Group] - 3-5 Days Time of Disposition: 14:14
[2021-10-08] MEDS ORDERED: BUTALB/ACETAMINOPHEN/CAFFEINE TAB PO ONE (12:32)
--- NOTE | 2021-10-08 12:51 | Cat Scan Report ---
CT head/brain wo con INDICATION / CLINICAL INFORMATION: 31 years Female; Hypertension, headache dizziness. TECHNIQUE: Routine CT head without contrast. All CT scans at this location are performed using CT dos e reduction for ALARA by means of automated exposure control. COMPARISON: None. FINDINGS: BRAIN / INTRACRANIAL CONTENTS: The brain parenchyma appears to demonstrate appropriate attenuation. T he ventricular system is within normal limits in size and configuration. There is no clear CT evidenc e of acute intracranial hemorrhage or significant mass effect. ORBITS: No significant abnormality of visualized orbits. SINUSES / MASTOIDS: No significant abnormality in the visualized paranasal sinuses or mastoid air truman ls. CRANIOCERVICAL JUNCTION: No significant abnormality. ADDITIONAL FINDINGS: None. IMPRESSION: 1. There is no CT evidence of acute intracranial process. Signer Name: Gustabo Sims MD Signed: 10/08/2021 12:46 PM Workstation Name: [id number]
[2021-10-08 12:57] VITALS: BP 157/86
[2021-10-08] MEDS ORDERED: amLODIPine 5 MG TAB PO ONE (13:07)
[2021-10-08 13:45] LABS: Mean Corpuscular HGB Conc 27 % (30-34); Red Blood Count 4.91 M/mm3 (3.65-5.03)
[2021-10-08 13:46] LABS: Hematocrit 26.1 % (30.3-42.9); Mean Corpuscular Volume 53 fl (79-97); Platelet Count 199 K/mm3 (140-440)
[2021-10-08 14:02] LABS: Blood Urea Nitrogen 7 mg/dL (7-17); Calcium 9.5 mg/dL (8.4-10.2); Hemolysis Index 2
[2021-10-08 14:11] LABS: BUN/Creatinine Ratio 18
[2021-10-08 14:34] LABS: Anisocytosis 2+; Hypochromasia 3+; Large Platelets Few; Platelet Estimate Consistent w Auto; Total Cells Counted 100
== END 2021-10-08 14:18 | disposition home or self-care (01) ==
LOC: ED 08:39
DX: R51.9 Headache, unspecified (principal); I10 Essential (primary) hypertension
CPT/HCPCS: 36415; 70450; 80048; 84703; 85007; 85025; 99284